=== PATIENT | female | born 1980 | race Caucasian/White ===

== ENCOUNTER 2020-02-18 13:10 | Emergency (ER) | payer SELFPAY ==
[2020-02-18 13:11] VITALS: BP 129/79; PULSE 83; RESP 15; TEMP 36.6; O2SAT 98; BMI 24.6
--- NOTE | 2020-02-18 13:34 | ED.VISSUMM ---
- ER Visit Summary Date of Service: 02/18/20 Chief Complaint: [Wants to be checked for STDs] History of Present Illness: The patient is a 39 F [presents to the emergency department with concern about possible STD although she has no symptoms. Patient states that she had a ex-boyfriend now who she was with for 3 years that she believes had cheated on her multiple times with multiple partners. Patient's boyfriend has not claim to have any sexually transmitted diseases. Patient has not had any abnormal lesions. She denies any vaginal discharge. She is not had any recent illness. She has no medical history. She does not get yearly Pap exams as she states she has not had a primary care physician in years.] Physical Examination: [HEENT-PERRLA, EOMI. Cranial nerves II through XII grossly intact. TMs clear. Mucous membranes moist. No adenopathy. Cardiovascular-regular rate and rhythm without murmur or ectopy Lungs-clear to auscultation, chest wall stable without crepitus or subcu emphysema Abdomen-normoactive bowel sounds, soft, nontender, no rebound or rigidity, no peritoneal signs. exam-patient deferred exam as she has no lesions or concerning symptoms. Extremities-intact ?4, normal range of motion, normal pulses, atraumatic] Test Results: [Patient had a GC chlamydia screen sent via urine.] Emergency Department Course and Treatment: [I discussed with patient empirically treating for GC and chlamydia however since she has no symptoms she would prefer to wait for results.] Treatment Plan: [Patient will be referred to [facility] for follow-up. Patient advised that she needs yearly Pap exams.] Disposition: [Discharged home in stable condition] Impression: [Concern for STD] This note was generated with [employer] dictation software. It may contain incorrect words, spelling, and punctuation that were not noted in review of the chart prior to signing ED Disposition - Plan for ED Patient: Referrals: Care Physician,No Primary [Primary Care Provider] -
--- NOTE | 2020-02-18 13:37 | ED.DEP ---
ED Disposition - Plan for ED Patient: Instructions: If You Think You Have an STD, Older Adults and STDs Referrals: Care Physician,No Primary [Primary Care Provider] - Manisha Chavarria MD [STAFF PHYSICIAN] - 3-5 Days
[2020-02-18 15:50] LABS: Chlamydia Trachomatis by PCR Negative (Negative)
[2020-02-18 15:51] LABS: Neisserai gonorrhoeae by PCR Positive (Negative); Probe Check PASS
[2020-02-18 22:01] VITALS: BP 129/79; PULSE 83; RESP 15; TEMP 37.2; O2SAT 98; BMI 24.6
[2020-02-18] MEDS: Ceftriaxone 500 MG Vial 250 MG IM (22:01)
--- NOTE | 2020-02-18 22:13 | ED.RN ---
pt came back and recieved her Rocephin shot and discharged without any incident.
== END 2020-02-18 22:19 | disposition home or self-care (01) ==
LOC: ED 14:08
PROVIDERS: Emergency Provider Emergency Medicine
DX: Z11.3 Encounter for screening for infections with a predominantly sexual mode of transmission (principal)
CPT/HCPCS: 87491; 87591; 96372; 99283

== ENCOUNTER 2021-11-10 10:44 | Day surgery (SDC) | payer BC, MEDICAID, SELFPAY ==
[2021-11-09 11:15] LABS: Hemoglobin 13.4 g/dL (12.0-15.0); Mean Corp Hgb Conc 32.7 g/dL (32-36); Mean Corpuscular Hgb 29.9 pg (27.0-32.0); Mean Corpuscular Volume 91.5 fL (81-99); Mean Platelet Vol. 10.7 fl (6.2-12.0); Platelet Count 305 K/mm3 (150-450); RBC Distribution Width CV 12.7 % (11.6-14.6); RBC Distribution Width SD 42.5 fl (35.1-43.9); Red Blood Count 4.48 M/mm3 (4.2-5.4); White Blood Count 7.6 K/mm3 (4.4-11.0)
--- NOTE | 2021-11-09 14:40 | PCM.HP.BLA ---
History and Physical Date of Admission: 11/10/21 HPI: The patient is a 41 year old female presenting for pre-operative visit. She is scheduled for Hysteroscopy D&C, polyp resection for AUB, thickened endometrium, suspected poly on 11/03/21. Procedure discussed along with risks, benefits and complications. Other alternatives discussed for management. Consent form signed? Yes. ? ? PAST MEDICAL HISTORY PAST MEDICAL HISTORY Diagnosis Date ? PMH - PAST MEDICAL HISTORY OF ? ? Blood transfusions x 2, following childbirth and tooth extraction ? Unspecified hemorrhagic conditions ? ? Bleeding tendency ? Von Willebrand's disease (HCC) ? ? ? PAST SURGICAL HISTORY PAST SURGICAL HISTORY Procedure Laterality Date ? PAST SURGICAL HISTORY OF ? ? ? dental extraction x 3 teeth ? ? ? CURRENT MEDICATIONS Current Outpatient Medications Medication Sig Dispense Refill ? norethindrone (AYGESTIN) 5 mg tablet Take 1 tablet by mouth once daily. 60 tablet 0 ? No current facility-administered medications for this visit. ? ? ALLERGIES: Patient has no known allergies. ? PERSONAL HISTORY: SOCIAL HISTORY Social History ? Tobacco Use ? Smoking status: Never Smoker ? Smokeless tobacco: Never Used Vaping Use ? Vaping Use: Never used Substance Use Topics ? Alcohol use: No ? Drug use: No ? FAMILY HISTORY: FAMILY HISTORY FAMILY HISTORY Problem Relation Age of Onset ? Hypertension Mother ? ? Breast Cancer Maternal Grandmother ? ? ? REVIEW OF SYMPTOMS: GENERAL: denies fevers or chills ENDOCRINOLOGY: has not been on steroids Cardiology : denies palpitations or chest pain Respiratory: denies SOB or cough Hematology: denies history of prolonged bleeding or easy bruising or VTE Allergy: Denies history of personal or family history of allergy to anesthesia ? PHYSICAL EXAMINATION: ? VITALS: Last menstrual period 07/23/2021. ? GENERAL: The patient is well nourished, well hydrated in no acute distress. , The patient is oriented to time, place, and person. NECK: Supple. No lynphadenopathy, normal thyroid, no thyromegaly. LUNGS: Clear to auscultation bilaterally. no wheezes, rhonchi or rales HEART: Regular rate and rhythm, Normal heart sounds and No murmurs or gallops ? IMPRESSION: h/o low von willebrand antigen and factor VIII but no definitive von Willebrand dx. AUB, endoemtrial thickening on US, suspect polyp ? PLAN: The risks/benefits/alternatives and personal involved for the planned hysteroscopy D&C with possible polyp resection were reviewed with the patient. Her questions were answered to her satisfaction and she desires to proceed. Consent was signed. I reviewed with her postop instructions and expectations. ? I have reviewed and updated past medical and surgical history, medications and allergies Assessment & Plan Assessment/Plan (1) Abnormal uterine bleeding (AUB): (2) Endometrial thickening on ultrasound:
[2021-11-10] VITALS (11 sets, daily range): BP systolic 105–120; BP diastolic 60–82; PULSE 66–83; RESP 15–18; TEMP 36.2–37.6; O2SAT 98–100; BMI 26.9
--- NOTE | 2021-11-10 | EMB_PTH ---
PATIENT: ANNABEL MADRIGAL LOC: [facility] [place] U#:[id number] AGE/SX: 41/F ROOM: RE11/10/[address]: Dr. Manisha Chavarria MD : 1980 BED: DIS: 11/10/2021 SPEC #: [id number] RECD: 11/10/21 13:38 STATUS: ROSANA REAdwoa #: [id number] DLIMA: 11/10/21 00:[address]: Manisha Chavarria DEPT: SURGICAL PATHOLOGY RECD BY: Vinicius La ENTERED: 11/11/21 10:48 SP TYPE: ENDOM BX/C CHARLI DR: No Primary Care Phys Tissues: Endometrium, NOS Procedures: Surgery Specimen Level IV HEADER OPERATION: Hysteroscopy, D & C PRE-OP DIAGNOSIS: Abnormal uterine bleeding; endometrial thickening TISSUE SUBMITTED: Endometrial curettings MICROSCOPIC DIAGNOSIS Endometrium, curettings: Weakly proliferative endometrium. Detached fragments of squamous epithelium with mild, moderate and severe squamous dysplasia, JESSICA I-III (HSIL). See comment AM:yancy 11/14/2021 COMMENT Results from immunohistochemistry ([id number]) for surrogate HPV marker (p16) will be reported separately. Case has been reviewed in consultation with Dr. Gregg who concurs with the above diagnosis. IDC:SJ MICROSCOPIC DESCRIPTION Slides are reviewed. GROSS DESCRIPTION Received in fixative is one container labeled with the patient's name and designated endometrial curettings. The specimen consists of light dos santos mucoid material aggregating to 2 x 2 x <0.1 cm. The specimen is totally submitted in one cassette. / AM:yancy 11/11/2021 TC:1 CPT: 71925
--- NOTE | 2021-11-10 | IMM_PTH ---
PATIENT: ANNABEL MADRIGAL LOC: [facility] [place] U#:[id number] AGE/SX: 41/F ROOM: RE11/10/[address]: Dr. Manisha Chavarria MD : 1980 BED: DIS: 11/10/2021 SPEC #: [id number] RECD: 11/14/21 11:55 STATUS: ROSANA REQ #: [id number] DILMA: 11/10/21 00:[address]: Manisha Chavarria DEPT: IMMUNOHISTOCHEMISTRY RECD BY: Radha Ann ENTERED: 11/14/21 11:56 SP TYPE: IMMUNO OTHR DR: No Primary Care Phys Tissues: Endometrium, NOS Procedures: p16 (initial) KI-67 (add) PHYSICIAN & INSTITUTION [place] [id number] SPECIMEN INFORMATION: Tissue Source: Endometrial curettings Clinical Info: Abnormal uterine bleeding, endometrial thickening Specimen Number: [id number] CPT code: 61107, 99110 METHODOLOGY: Deparaffinized sections of prefer/formalin-fixed tissue or PAP/DQ stained slides are incubated with monoclonal/polyclonal antibodies/oligonucleotide probes. Localization is made via biotin free immunoperoxidase method. Appropriate controls are performed and reacted as expected. Results on target cell population are indicated in the following table: RESULTS: ANTIBODY / CLONE RESULT P16 (E6H4) positive, block-like Ki-67 (30-9) positive, >90% These tests were developed and their performance characteristics determined by [facility]. They may not have been cleared or approved by the U.S. Food and Drug Administration. The FDA has determined that such clearance or approval is not necessary. The above immunohistochemical/dualISH markers are ordered and reviewed by the Pathologist. INTERPRETATION: Endometrium, curettings: Squamous mucosa with mild, moderate and severe squamous dysplasia, JESSICA?III (HSIL). AM:yancy 11/15/2021
[2021-11-10 11:18] LABS: Internal QC Validated? YES +Cl - CLEAR BKGD; Pregnancy, Urine Negative Negative
[2021-11-10] MEDS: Acetaminophen 500 MG Tablet 1000 MG PO (11:23)
[2021-11-10] MEDS: Ketorolac 30 MG/ML Syringe IV (11:26)
[2021-11-10] MEDS: Lactated Ringers 1,000 ML 15 ML IV (11:28)
[2021-11-10] MEDS: 0.9% Normal Saline 1,000 ML 15 ML IV (11:29)
[2021-11-10] MEDS: Lidocaine 1% /Epi 1:100 (20ml) 20 ML Vial (12:55)
--- NOTE | 2021-11-10 13:06 | OP.PCM_ITS ---
Problems Associated Problem List Diagnoses (1) Endometrial thickening on ultrasound: (2) Abnormal uterine bleeding (AUB): Report of Operation Date of Procedure: 11/10/21 Pre-Operative Diagnosis: AUB, thickened endometrium Post-Operative Diagnosis: same Surgery/Procedure Performed:: Hysteroscopy D&C Description of Surgical Findings:: normal cervix and vagina, normal endometrium wihtout discrete polyps, both tubal ostia identified Surgeon: Manisha Chavarria dock supervisor: None Type of Anesthesia: MAC/Supplemental/Local Anesthesiologist: Kaushal Childs Special Medications: none Specimen's removed: endometrial curettings Drains: none Estimated Blood Loss (mL): 10 Fluids Replaced: 400 + one pack of platelets Description of Procedure: The patient was taken to the OR where she was prepped and draped in dorsal lithotomy position. The weighted speculum was placed in the vagina and the anterior lip of the cervix was grasped with a single-tooth tenaculum. A paracervical block was administered with 1% Xylocaine with dilute epinephrine solution. The cervix was dilated serially with Hegar dilators. The 7,mm hysteroscope was placed into the uterine cavity and the above findings were noted. Bilateral tubal ostia were identified. The hysteroscope was removed. A gentle sharp curettage was done of the uterine cavity. The instruments were removed from the vagina. The specimen was handed off and sent to pathology. All sponge and needle counts were correct. Vaginal sweep was performed by me. The patient was awakened and taken to the recovery room in stable condition. Calculated hysteroscopic fluid deficit 20 cc normal saline Findings: Endometrial cavity: Normal, no fibroids or polyps noted Cervix: Normal Vagina: Normal Grafts/Implants Used: none Procedure Start Time: 12:55 Procedure Stop Time: 13:03 Complications none Admit VTE Documentation VTE Present on Admission: No VTE Mechan Device Prophylaxis: SCD's VTE Pharm Prophylaxis ordered?: No Reason prophylaxis not ordered:: Procedure Not Indicated
--- NOTE | 2021-11-10 13:08 | PCM.DC ---
Discharge Instructions Diet Discharge Diet: No restrictions Activity Discharge Activity: [address] Drive (11/12/2019) Return to work on:: 11/11/21 May shower in (days): 1 May resume sexual activity in: 1-2 weeks and 2 weeks Lifting Restrictions: none Dressing / Incision Call your doctor if your incision/area has: Sudden Increased Bleeding and Foul Smelling Discharge Call your doctor if you observe: Fever of 101 or Higher and Using more than 1 pad per hour (for 2 hrs in a row) Follow Up Care Please Follow Up With: Manisha Chavarria MD When: 2-4 weeks or as needed. Call [phone] to make an appointment or with any concerns. Test Results: Test results from this visit will be discussed in further detail at your follow-up appointment, if applicable. Discharge Plan Admission Primary Reason for Your Visit: D&C Attending Provider: Manisha Chavarria Primary Care Provider: Gema Physician,Jeana Primary Discharge Orders/Prescriptions Prescriptions: No Action norethindrone acetate 5 mg Tablet 5 mg PO DAILY RF: 0 Other Ambulatory Orders: Platelets Apheresis PPHR LR SD (Routine) Timeframe: [id number] Location: None Selected Ordered By: Dr. Manisha Chavarria Referrals / Follow Up: Care Physician,No Primary [Primary Care Provider] - Disposition Disposition (needs filled in before D/C Order can be placed): Home, Self Care
--- NOTE | 2021-11-10 13:23 | SUR.PHASEI ---
PT SECOND BAG OF PLATELETS WERE COMPLETED IN OR PRIOR TO ARRIVING IN PACU.
== END 2021-11-10 15:07 | disposition home or self-care (01) ==
LOC: SDC 10:46 → AC 10:46
PROVIDERS: Referring Provider Obstetrics & Gynecology; Visit Provider Obstetrics & Gynecology
PROC: 0UB98ZZ Excision of Uterus, Via Natural or Artificial Opening Endoscopic (ICD-10-PCS; CPT 58558; principal; 2021-11-10 12:15)
DX: N93.9 Abnormal uterine and vaginal bleeding, unspecified (principal); D68.0 Von Willebrand disease; R93.89 Abnormal findings on diagnostic imaging of other specified body structures; R23.3 Spontaneous ecchymoses; Z20.822 Contact with and (suspected) exposure to COVID-19
CPT/HCPCS: 58558; 00952; 36415; 36430; 81025; 85027; 86850; 86900; 86901; 86965; 87811; 88305; 88341; 88342; J7030; J7120; P9035; J2405; J3490

== ENCOUNTER 2023-07-24 19:28 | Emergency (ER) | payer OTHER, SELFPAY ==
[2023-07-24] VITALS (22 sets, daily range): BP systolic 124–141; BP diastolic 84–96; PULSE 72–83; RESP 0–18; TEMP 36.1; O2SAT 95–100; BMI 27.3
--- NOTE | 2023-07-24 19:57 | EKG12_ITS ---
Test Reason : HEADACHE Blood Pressure : / mmHG Vent. Rate : 083 BPM Atrial Rate : 083 BPM P-R Int : 194 ms QRS Dur : 092 ms QT Int : 390 ms P-R-T Axes : 025 011 015 degrees QTc Int : 458 ms Normal sinus rhythm Normal ECG Confirmed by ARELIS GIBSON, ROSANA ([id number]), proposal editor DANIEL MALDONADO ([id number]) on 07/27/2023 7:56:21 AM Referred By: Confirmed By:ROSANA INFANTE MD
--- NOTE | 2023-07-24 19:57 | CT_ITS ---
EXAM: CT HEAD WITHOUT INTRAVENOUS CONTRAST CLINICAL INDICATION: headache TECHNIQUE: Multiple axial images were obtained of the head without intravenous contrast. This CT exam was performed using one or more of the following dose reduction techniques: automated exposure control, adjustment of the mA and/or kV according to patient size, and/or use of iterative reconstruction technique. COMPARISON: No relevant prior studies available. FINDINGS: BRAIN AND EXTRA-AXIAL SPACES: No significant abnormality. No intra- or extra-axial hemorrhage. No evidence of acute infarct. No intracranial mass or mass effect. There is preservation of the san/white matter interface. Ventricles are appropriate for age. Basal cisterns are patent. BONES/JOINTS: No significant abnormality. No discrete lytic or blastic abnormalities. SINUSES: Mucous retention cyst in the right maxillary sinus. MASTOID AIR CELLS: No significant effusion. ORBITS: No acute findings. CT/Brain/Head without Contrast IMPRESSION: No acute findings in the head/brain. Electronically Signed: Pedro Perez DO at 20:25 EST ,
[2023-07-24] MEDS: 0.9% Normal Saline (1000mL) 1,000 ML 1000 ML IV (20:05)
[2023-07-24] MEDS: Ketorolac 15 MG/ML Vial IV (20:05)
[2023-07-24] MEDS: proCHLORPERazine 10 MG/2 ML Vial IV (20:05)
--- NOTE | 2023-07-24 20:15 | RAD_ITS ---
EXAM: XR CHEST, 1 VIEW CLINICAL INDICATION: chest pain TECHNIQUE: Frontal view of the chest. COMPARISON: No relevant prior studies available. FINDINGS: LUNGS AND PLEURAL SPACES: No significant abnormality. No consolidation or edema. No pneumothorax. No effusion. HEART: No significant abnormality. Cardiac silhouette not enlarged. MEDIASTINUM: Central airways and mediastinal contour are unremarkable. BONES/JOINTS: No significant abnormality. No acute fracture. SOFT TISSUES: No significant abnormality. RAD/Chest 1 View (Portable) IMPRESSION: No radiographic evidence of acute cardiopulmonary disease. Electronically Signed: Pedro Perez DO at 20:30 EST ,
--- NOTE | 2023-07-24 20:20 | EX.ED.VIS.HA ---
HPI History of Present Illness Chief Complaint: Headache Narrative Narrative: 43-year-old female who denies significant past medical history presents with multiple complaints ranging from back pain over the last few weeks, to chest pain for the last week, and headache that began today. She does not have a history of migraines. She states that her headache is associated with nausea but no vomiting. It is mainly left-sided. She endorses photophobia but no phonophobia. She has not taken anything for analgesia because she does not have anything at home. However, she was able to drive herself to the emergency department. She complains of chest pain more on the left side of her chest without exacerbating or alleviating factors. She said back pain as well for a bit longer. She presents because of multiple somatic complaints, but mainly the headache which started today. There are also no exacerbating or alleviating factors to this as well. [facility] Medical History Back pain Blackout Easy bruising Headache Heartburn History of pain when walking History of stress test Leg cramps Low iron Non-smoker Wears dentures Wears hearing aid Home Medications NK 07/24/23 [History Last Taken Unknown] Allergy/AdvReac Type Severity Reaction Status Date / Time No Known Allergies Allergy Verified 07/24/23 19:34 Surgical History Hx of appendectomy Hx of tooth extraction Social History Smoking Status: Never smoker ROS ROS ED ROS Narrative Constitutional: No fever, no chills. HEENT: No sore throat. No neck pain. No loss of vision. No rhinorrhea. Cardiovascular: +1-week duration of left-sided chest pain. No palpitations. No pedal edema. Respiratory: No cough, no shortness of breath. Abdominal: No abdominal pain. Positive nausea. No vomiting. Genitourinary: No dysuria. No hematuria. Musculoskeletal: No myalgias. No arthralgias. Positive back pain. Neurologic: Positive sided headaches. No dizziness. No lightheadedness. Skin: No rash. No change in color. Psychiatric: No depression. No anxiety. EXAM Physical Exam Narrative Exam Narrative: Afebrile. Vital signs noted. HEENT: Normocephalic. Atraumatic. PERRL, EOMI. Neck soft and supple. No point tenderness or step off. Cardiovascular: Regular rate and rhythm. No murmurs, rubs, or gallops appreciated. Respiratory: No tachypnea. Lungs clear to auscultation bilaterally. Gastrointestinal: Abdomen soft, nontender, with normoactive bowel sounds. No rebound or guarding. Neurological: Awake. Alert. Nonfocal, nonlateralizing. DTRs equal and symmetric. Skin: No rash. Normal color. No pallor. Musculoskeletal: No pedal edema. Full range of motion extremities. Const Vital Signs: 07/24/23 19:30 07/24/23 19:53 07/24/23 19:54 Temperature 97.0 F L Temperature Source Temporal Pulse Rate 83 82 Respiratory Rate 15 16 Respiratory Pattern Normal Blood Pressure 141/93 H 137/96 H Blood Pressure Mean 109 109 Pulse Ox 100 99 Oxygen Delivery Method Room Air Room Air 07/24/23 19:57 07/24/23 21:27 Temperature Temperature Source Pulse Rate 73 Respiratory Rate 16 Respiratory Pattern Blood Pressure 129/92 H Blood Pressure Mean 104 Pulse Ox 97 Oxygen Delivery Method Room Air Room Air MDM MDM MDM Narrative Medical decision making narrative: Regarding her headache, and the differential is migraine versus tension headache. Sounds more like classical migraine but she does not have a history of this. Hence, I do feel imaging of the brain is indicated. CT will be obtained to help rule out hemorrhage or mass. Regarding her chest pain, in the differential diagnosis is ACS versus musculoskeletal chest wall pain. EKG was obtained and interpreted by myself as normal sinus rhythm at 83 bpm without ectopy or acute ST changes. No STEMI. I will obtain a chest x-ray to help rule out pneumonia or pneumothorax but the history and physical is not supportive of these diagnoses. I reviewed her laboratory work, she has normal white count of 10.6, hemoglobin 13.2, hematocrit 40.3, platelet count normal at 268. D-dimer is negative at less than 0.27. I have low suspicion for pulmonary embolism. I do not think she is having an aortic dissection either. She does not have tearing sensation in her back and her blood pressure is appropriate. She has equal pulses radially. Review of her electrolyte panel shows potassium slightly low at 3.4 which I think is nonspecific, glucose appropriately elevated at 99 with anion gap low at 4. Troponin is 3. Once again she has been having chest pain for over a week so I do not feel serial troponins are warranted. Her serum is negative. I reviewed the radiology report of the CT of the brain which shows no acute hemorrhage, no mass. Chest x-ray in 1 view interpreted by myself independently shows no evidence of pneumonia or pneumothorax. No widened mediastinum. I reviewed the radiology report which confirms my independent interpretation. After ketorolac, and prochlorperazine, she was easily awakened and upon repeat examination at approximately 2210, her headache is almost resolved. Had been rated as a 9 out of 10. I feel she can be discharged safely home to follow-up with a primary care provider. Return instructions to the emergency department were reviewed. Disposition is discharged home in improved and stable condition. History & Record Review Discussion w/independent historian: Patient Additional record(s) reviewed:: Prior ED visit Lab Data Attestation: I reviewed the patient's lab results. Labs: Laboratory Results - last 24 hr 07/24/23 19:58 WBC 10.6 RBC 4.45 Hgb 13.2 Hct 40.3 MCV 90.6 MCH 29.7 MCHC 32.8 RDW Std Deviation 43.6 RDW Coeff of Isha 13.2 Plt Count 268 MPV 10.7 Immature Gran % (Auto) 0.300 Neut % (Auto) 71.2 H Lymph % (Auto) 19.6 [place] % (Auto) 6.8 Eos % (Auto) 1.8 Baso % (Auto) 0.3 Absolute Neuts (auto) 7.6 Absolute Lymphs (auto) 2.08 Nucleated RBC % 0 D-Dimer Quant (PE/DVT) < 0.27 L Sodium 138 Potassium 3.4 L Chloride 107 Carbon Dioxide 27.0 Anion Gap 4 L BUN 7 Creatinine 0.65 Estim Creat Clear Calc 102.46 Est GFR (MDRD) Af Amer 127 Est GFR (MDRD) Non-Af 105 BUN/Creatinine Ratio 10.8 Glucose 99 Calcium 8.9 Total Bilirubin 0.40 AST 21 ALT 15 Alkaline Phosphatase 60 Troponin I High Sens 3 Total Protein 7.0 Albumin 3.5 Globulin 3.5 Albumin/Globulin Ratio 1.0 Serum , Qual NEGATIVE Radiography Diagnostic Testing: Clinical Impression(s) from Imaging Studies Brain CT 07/24/23 19:57 IMPRESSION: No acute findings in the head/brain. Electronically Signed: Pedro Perez DO at 20:25 EST , Chest X-Ray 07/24/23 20:15 IMPRESSION: No radiographic evidence of acute cardiopulmonary disease. Electronically Signed: Pedro Perez DO at 20:30 EST , Discharge Plan Triage Chief Complaint: Headache ED Provider: Ludwin Latham Dx/Rx/DC Orders Clinical Impression: Back pain, Headache, Chest pain Instructions: ED Back Pain (Acute or Chronic), ED Chest Pain, Uncertain Cause, ED Headache Unspecified, ED, Migraine (Classical) Prescriptions: No Action NK Primary Care Provider: Care Physician,No Primary Referrals: Rachell Candelaria MD [Med Staff - Residential Property Consultant] - As soon as possible Care Physician,No Primary [Primary Care Provider] - Activity Restrictions/Additional Instructions: Follow-up with primary care provider as soon as possible. Return with new or worsening symptoms. Disposition Disposition: Home, Self Care Capacity Legal Switchboard Mechanic Reflex Medical hold order details:: IF a medical hold is selected below, a suggested order for a MEDICAL HOLD will reflex upon signing the document. Next of kin: [place] law dictates a PRIORITY LIST for identifying legal decision-maker/legal next of kin in the following order (LNOK): 1st: The patient?s legal guardian, if any 2nd: The patient's spouse (if status is questionable, consult Risk Management) 3rd: The patient?s adult child(katalina) (majority, if multiple children) 4th: The patient?s parents 5th: The patient?s adult siblings (majority, if multiple children siblings)
--- OUTSIDE RECORDS SUMMARY | 2023-07-24 20:27 | XMS RPT_ITS | CCD ---
Author Name Unknown Address [address] [place] [address] Organization [facility] Care Team Providers Care Manager Of Training And Development Name Role Phone Unavailable Primary Care Provider UnavailALPESH Sandoval Attending Unavailable ALPESH CASAS Referring Unavailable ALPESH CASAS Attending Unavailable ALPESH CASAS Referring Unavailable ALPESH CASAS Attending Unavailable DYLAN SOUZA Referring Unavailable ALPESH CASAS Attending Unavailable ALPESH CASAS Referring Unavailable ALPESH CASAS Attending Unavailable Medications Current Medications Medication Drug Class(es) Dates Sig (Normalized) Sig (Original) amoxicillin 500 mg oral capsule (1 source) Penicillin-class Antibacterial Start: 10-02-2022 End: 10-12-2022 take 1 capsule by mouth twice daily amoxicillin (AMOXIL) 500 mg capsule Indications: Strep throat Take 1 capsule by mouth twice daily for 10 days. 20 capsule 0 10/02/2022 10/12/2022 Active Completed/Discontinued Medications Medication Drug Class(es) Dates Sig (Normalized) Sig (Original) norethindrone acetate 5 mg oral tablet (12 sources) Start: 10-03-2021 End: 06-19-2022 take 1 tablet by mouth once daily norethindrone (AYGESTIN) 5 mg tablet Take 1 tablet by mouth once daily. 60 tablet 0 10/03/2021 06/19/2022 Discontinued (Other) Problems Active Problems Problem Classification Problem Date Documented Date Episodic/Chronic Coagulation and hemorrhagic disorders (20 sources) Blood coagulation disorder; Translations: [Coagulation defect, unspecified] Onset: 03-12-2007 03-12-2007 Chronic Immunizations and screening for infectious disease (2 sources) Requires vaccination; Translations: [Encounter for immunization] Onset: 08-22-2022 Episodic Other aftercare (1 source) Surgical follow-up; Translations: [Encounter for follow-up examination after completed treatment for conditions other than malignant neoplasm] Episodic Other female genital disorders (3 sources) Abnormal uterine bleeding; Translations: [Abnormal uterine and vaginal bleeding, unspecified] Chronic Other female genital disorders (1 source) Cervical intraepithelial neoplasia grade 2; Translations: [Moderate cervical dysplasia] Episodic Other screening for suspected conditions (not mental disorders or infectious disease) (2 sources) Endometrium thickened; Translations: [Abnormal findings on diagnostic imaging of other specified body structures] Chronic Other upper respiratory infections (2 sources) Sore throat symptom; Translations: [Acute pharyngitis, unspecified] Episodic Past or Other Problems Problem Classification Problem Date Documented Date Episodic/Chronic Cancer of cervix (7 sources) Abnormal histological finding in specimen from female genital organ; Translations: [Carcinoma in situ of cervix, unspecified] Onset: 11-29-2021 Episodic Disorders of teeth and jaw (14 sources) Temporomandibular joint disorder; Translations: [Unspecified temporomandibular joint disorder, unspecified side] Onset: 08-12-2007 08-12-2007 Episodic Other screening for suspected conditions (not mental disorders or infectious disease) (1 source) Other abnormal and inconclusive findings on diagnostic imaging of breast; Translations: [Abnormal mammogram] Onset: 10-12-2021 Episodic Results Test Name Value Interpretation Reference Range Facil it Vital Signs Date Time Vital Sign Value Performing Clinician Dallin gonzalez 10-02-2022 16:07-0400 Body temperature 99.3 [degF] Karen Good APRN.CNP Work Phone: [facility] 10-02-2022 16:07-0400 Body weight 74.39 kg Karen Good APRN.CNP Work Phone: [facility] 10-02-2022 16:07-0400 Diastolic blood pressure 76 mm[Hg] Karen Good APRN.CNP Work Phone: [facility] 10-02-2022 16:07-0400 Heart rate 102 /min Karen Good APRN.CNP Work Phone: [facility] 10-02-2022 16:07-0400 Respiratory rate 18 /min Karen Good APRN.INCIDENT RESPONSE COORDINATOR Work Phone: [facility] 10-02-2022 16:07-0400 SaO2% (BldA) [Mass fraction] 97 % Karen Good DATA SYSTEMS MANAGER.INCIDENT RESPONSE COORDINATOR Work Phone: [facility] 10-02-2022 16:07-0400 Systolic blood pressure 122 mm[Hg] Karen Good DATA SYSTEMS MANAGER.INCIDENT RESPONSE COORDINATOR Work Phone: [facility] 06-19-2022 09:36-0500 Body weight 70.31 kg Alpesh Casas MD Work Phone: [facility] 06-19-2022 09:36-0500 Diastolic blood pressure 78 mm[Hg] Alpesh Casas MD Work Phone: [facility] 06-19-2022 09:36-0500 Systolic blood pressure 122 mm[Hg] Alpesh Casas MD Work Phone: [facility] 01-16-2022 11:08-0400 Body weight 70.85 kg Alpesh Casas MD Work Phone: [facility] 01-16-2022 11:08-0400 Diastolic blood pressure 60 mm[Hg] Alpesh Casas MD Work Phone: [facility] 01-16-2022 11:08-0400 Systolic blood pressure 100 mm[Hg] Alpesh Casas MD Work Phone: [facility] 11-29-2021 11:08-0400 Body weight 67.77 kg Alpesh Casas MD Work Phone: [facility] 11-29-2021 11:08-0400 Diastolic blood pressure 68 mm[Hg] Alpesh Casas MD Work Phone: [facility] 11-29-2021 11:08-0400 Systolic blood pressure 100 mm[Hg] Alpesh Casas MD Work Phone: [facility] 10-28-2021 10:55-0400 Body height 159.4 cm Alpesh Casas MD Work Phone: [facility] 10-28-2021 10:55-0400 Body weight 68.49 kg Alpesh Casas MD Work Phone: [facility] 10-28-2021 10:55-0400 Diastolic blood pressure 74 mm[Hg] Alpesh Casas MD Work Phone: [facility] 10-28-2021 10:55-0400 Heart rate 88 /min Alpesh Casas MD Work Phone: [facility] 10-28-2021 10:55-0400 Respiratory rate 18 /min Alpesh Casas MD Work Phone: [facility] 10-28-2021 10:55-0400 Systolic blood pressure 120 mm[Hg] Alpesh Casas MD Work Phone: [facility] Encounters Encounter Date Encounter Type Care Provider Facility Start: 10-02-2022 End: 10-02-2022 ambulatory ALPESH CASAS Facility:[facility] [place] Start: 10-02-2022 End: 10-02-2022 Patient encounter procedure Karen Good APRN.CNP Work Phone: [facility] Procedures Date Procedure Procedure Detail Performing Clinician Start: 10-02-2022 STREP A MOLECULAR (POC) Karen Good APRN.CNP Work Phone: Start: 09-08-2021 Mammography Alpesh pascual MD Work Phone: Plan of Treatment Date Care Activity Detail Author Start: 06-19-2027 HPV TESTING HPV TESTING [facility] Start: 02-23-2025 HPV TESTING HPV TESTING [facility] Start: 02-23-2025 PAP TESTING PAP TESTING [facility] Start: 12-16-2022 9vhpv vacc 2/3 dose sched im use HUMAN PAPILLOMAVIRUS 9-VALENT HPV IM Immunization/Injection Routine High grade squamous intraepithelial lesion (HGSIL), grade 3 JESSICA, on biopsy of cervix Dysplasia of cervix, high grade JESSICA 2 Need for prophylactic vaccination/inoculation against viral disease Expected: 12/16/2022 (Approximate) [facility] Work Phone: Immunizations Immunization Date Immunization Notes Care Provider Marie mai 08-22-2022 Human Papillomavirus 9-valent vaccine Karen Good APRN.INCIDENT RESPONSE COORDINATOR Work Phone: [facility] 06-19-2022 Human Papillomavirus 9-valent vaccine Alpesh Casas MD Work Phone: [facility] 12-08-2003 diphtheria and tetan us toxoids, adsorbed for pediatric use Alpesh Casas MD Work Phone: [facility] Work Phone: Payers Date Payer Category Payer Unknown [id number] 2022 Unknown [employer] PPO [id number] 2022-Present [phone] [address] [place] [address] PPO [id number] 2021 Unknown [employer] PPO [id number] 2021-Present [phone] [address] [place] [id number] PPO [id number] 2021 Unknown [id number] 2021 Private Health Insurance [id number] 2021 Unknown [id number] 2020 Medicaid [employer] [id number] 2020-Present [phone] [address] [place] [address] Medicaid [id number] 2020 Medicaid [id number] Social History Date Type Detail Facility Start: 06-19-2022 Tobacco smoking stat us NCIS Never smoked tobacco [facility] Start: 10-28-2021 End: 06-19-2022 Alcohol intake Current non-drinker of alcohol (finding) [facility] Start: 09-05-2021 Education 14 [facility] Start: 1980 Sex Assigned At Not on file [facility] Start: 10-18-2021 End: 11-29-2021 Exposure to SARS-CoV-2 (event) Not sure [facility] Start: 06-19-2022 Tobacco use and exposure Smoke less tobacco non-user [facility] Clinical Notes 09-09-2021 to 10-02-2022 Karen Good APRN.INCIDENT RESPONSE COORDINATOR - 10/02/2022 4:20 PM EDTPatient InstructionsTabathjanet Cisneros Ma - 06/19/2022 9:50 AM ESTRebben Casas MD - 06/19/2022 9:32 AM ESTPatient InstructionsPatient Instructions Note Date & Type Note Facility 10-02-2022 Note HNO ID: [id number] Author: Karen Good APRN.INCIDENT RESPONSE COORDINATOR Service: ? Author Type: Nurse Practitioner Type: Progress Notes Filed: 10/02/2022 4:49 PM Note Text: Subjective Sore Throat Pertinent negatives include no abdominal pain, congestion, coughing, diarrhea, ear pain or vomiting. Isatu Sage is a 42 year old female who presents with a sore throat and body aches since last night. She has not had a fever. She has not had any sick contacts. She took Dayquil at home for symptoms. Review of Systems Constitutional: Negative for chills and fever. HENT: Positive for sore throat. Negative for congestion and ear pain. Respiratory: Negative for cough. Cardiovascular: Negative. Gastrointestinal: Negative for abdominal pain, diarrhea, nausea and vomiting. Musculoskeletal: Positive for myalgias. BP 122/76 Pulse 102 Temp 37.4 ?C (99.3 ?F) Resp 18 Wt 74.4 kg (164 lb) LMP 06/07/2022 (Exact Date) SpO2 97% BMI 29.28 kg/m? PAST MEDICAL HISTORY Diagnosis Date High grade squamous intraepithelial lesion (HGSIL), grade 3 JESSICA, on biopsy of cervix PMH - PAST MEDICAL HISTORY OF Blood transfusions x 2, following childbirth and tooth extraction Unspecified hemorrhagic conditions Bleeding tendency Von Willebrand's disease PAST SURGICAL HISTORY Procedure Laterality Date HYSTEROSCOPY BX ENDOMETRIUMAND/POLYPC W/WO DANDC 11/10/2021 hysteroscopy DANVA for AUB, thickened endometrium HYSTEROSCOPY, DIAGNOSTIC (SEPARATE 11/10/2021 Hysteroscopy DARCIE @ [facility]-Dr. Casas PAST SURGICAL HISTORY OF dental extraction x 3 teeth ALLERGIES Patient has no known allergies. MEDICATIONS amoxicillin (AMOXIL) 500 mg capsule Take 1 capsule by mouth twice daily for 10 days. FAMILY HISTORY Problem Relation Age of Onset Hypertension Mother Breast Cancer Maternal Grandmother Social History Tobacco Use Smoking status: Never Smokeless tobacco: Never Vaping Use Vaping Use: Never used Substance Use Topics Alcohol use: No Drug use: No Objective Physical Exam Vitals and nursing note reviewed. Constitutional: General: She is not in acute distress. Appearance: Normal appearance. She is not toxic-appearing. HENT: Right Ear: Tympanic membrane, ear canal and external ear normal. Left Ear: Tympanic membrane, ear canal and external ear normal. Nose: Nose normal. Mouth/Throat: Mouth: Mucous membranes are moist. Pharynx: Uvula midline. Posterior oropharyngeal erythema present. No oropharyngeal exudate. Cardiovascular: Rate and Rhythm: Normal rate and regular rhythm. Heart sounds: Normal heart sounds. Pulmonary: Effort: Pulmonary effort is normal. No respiratory distress. Breath sounds: Normal breath sounds. No wheezing or rales. Musculoskeletal: Cervical back: Neck supple. Lymphadenopathy: Cervical: No cervical adenopathy. Skin: General: Skin is warm and dry. Findings: No erythema or rash. Neurological: Mental Status: She is alert. ASSESSMENT/PLAN: 1. Sore throat - ICD9: 462, ICD10: J02.9 (primary diagnosis) - STREP A MOLECULAR (POC) 2. Strep throat - ICD9: 034.0, ICD10: J02.0 - Alere Strep Test positive, no culture pending - antibiotic as written - Discussed supportive care treatment with fluids, rest and analgesia. - The patient may also use warm salt water gargles, throat lozenges and/or OTC throat spray as needed. - Contagious dz precautions discussed- including considered contagious until on antibiotics for 24 hours - Call back if drooling, increased temperature, symptoms of dehydration and/or still sick in one week - AMOXICILLIN 500 MG CAPSULE - Follow-up with your PCP in 3-5 days if symptoms have not improved or sooner if symptoms worsen - Discussed red flags and need for immediate medical evaluation if any occur. - Discussed supportive care treatment with fluids, rest and analgesia. - Discussed expected course of illness Karen Good APRN.INCIDENT RESPONSE COORDINATOR [facility] 10-02-2022 History of Presen t illness Narrative Subjective Sore Throat Pertinent negatives include no abdominal pain, congestion, coughing, diarrhea, ear pain or vomiting. Isatu Sage is a 42 year old female who presents with a sore throat and body aches since last night. She has not had a fever. She has not had any sick contacts. She took Dayquil at home for symptoms. Review of Systems Constitutional: Negative for chills and fever. HENT: Positive for sore throat. Negative for congestion and ear pain. Respiratory: Negative for cough. Cardiovascular: Negative. Gastrointestinal: Negative for abdominal pain, diarrhea, nausea and vomiting. Musculoskeletal: Positive for myalgias. BP 122/76 Pulse 102 Temp 37.4 C (99.3 F) Resp 18 Wt 74.4 kg (164 lb) LMP 06/07/2022 (Exact Date) SpO2 97% BMI 29.28 kg/m PAST MEDICAL HISTORY Diagnosis Date High grade squamous intraepithelial lesion (HGSIL), grade 3 JESSICA, on biopsy of cervix PMH - PAST MEDICAL HISTORY OF Blood transfusions x 2, following childbirth and tooth extraction Unspecified hemorrhagic conditions Bleeding tendency Von Willebrand's disease PAST SURGICAL HISTORY Procedure Laterality Date HYSTEROSCOPY BX ENDOMETRIUM&/POLYPC W/WO D&C 11/10/2021 hysteroscopy D&C for AUB, thickened endometrium HYSTEROSCOPY, DIAGNOSTIC (SEPARATE 11/10/2021 Hysteroscopy D&C @ [facility]-Dr. Casas PAST SURGICAL HISTORY OF dental extraction x 3 teeth ALLERGIES Patient has no known allergies. MEDICATIONS amoxicillin (AMOXIL) 500 mg capsule Take 1 capsule by mouth twice daily for 10 days. FAMILY HISTORY Problem Relation Age of Onset Hypertension Mother Breast Cancer Maternal Grandmother Social History Tobacco Use Smoking status: Never Smokeless tobacco: Never Vaping Use Vaping Use: Never used Substance Use Topics Alcohol use: No Drug use: No Objective Physical Exam Vitals and nursing note reviewed. Constitutional: General: She is not in acute distress. Appearance: Normal appearance. She is not toxic-appearing. HENT: Right Ear: Tympanic membrane, ear canal and external ear normal. Left Ear: Tympanic membrane, ear canal and external ear normal. Nose: Nose normal. Mouth/Throat: Mouth: Mucous membranes are moist. Pharynx: Uvula midline. Posterior oropharyngeal erythema present. No oropharyngeal exudate. Cardiovascular: Rate and Rhythm: Normal rate and regular rhythm. Heart sounds: Normal heart sounds. Pulmonary: Effort: Pulmonary effort is normal. No respiratory distress. Breath sounds: Normal breath sounds. No wheezing or rales. Musculoskeletal: Cervical back: Neck supple. Lymphadenopathy: Cervical: No cervical adenopathy. Skin: General: Skin is warm and dry. Findings: No erythema or rash. Neurological: Mental Status: She is alert. ASSESSMENT/PLAN: 1. Sore throat - ICD9: 462, ICD10: J02.9 (primary diagnosis) - STREP A MOLECULAR (POC) 2. Strep throat - ICD9: 034.0, ICD10: J02.0 - Alere Strep Test positive, no culture pending - antibiotic as written - Discussed supportive care treatment with fluids, rest and analgesia. - The patient may also use warm salt water gargles, throat lozenges and/or OTC throat spray as needed. - Contagious dz precautions discussed- including considered contagious until on antibiotics for 24 hours - Call back if drooling, increased temperature, symptoms of dehydration and/or still sick in one week - AMOXICILLIN 500 MG CAPSULE - Follow-up with your PCP in 3-5 days if symptoms have not improved or sooner if symptoms worsen - Discussed red flags and need for immediate medical evaluation if any occur. - Discussed supportive care treatment with fluids, rest and analgesia. - Discussed expected course of illness Karen Good APRN.ZAY documented in this encounter [facility] 10-02-2022 Instructions Karen Good APRN.ZAY - 10/02/2022 4:19 PM EDT ASSESSMENT/PLAN: 1. Sore throat - ICD9: 462, ICD10: J02.9 (primary diagnosis) - STREP A MOLECULAR (POC) 2. Strep throat - ICD9: 034.0, ICD10: J02.0 - Alere Strep Test positive, no culture pending - antibiotic as written - Discussed supportive care treatment with fluids, rest and analgesia. - The patient may also use warm salt water gargles, throat lozenges and/or OTC throat spray as needed. - Contagious dz precautions discussed- including considered contagious until on antibiotics for 24 hours - Call back if drooling, increased temperature, symptoms of dehydration and/or still sick in one week - AMOXICILLIN 500 MG CAPSULE - Follow-up with your PCP in 3-5 days if symptoms have not improved or sooner if symptoms worsen - Discussed red flags and need for immediate medical evaluation if any occur. - Discussed supportive care treatment with fluids, rest and analgesia. - Discussed expected course of illness Karen Good APRN.CNP STREP INFECTIONS: Streptococcal bacteria can cause a sore throat, ear and sinus infections, and skin diseases. Strep throat is diagnosed by a special throat swab or culture test. These infections require either an antibiotic shot or an oral antibiotic medicine to get rid of all the bacteria and prevent rheumatic fever, a dangerous complication. The symptoms of Strep infection, however, usually get better after just 2-3 days of drug treatment. These infections are very contagious; any close contacts who have a fever, sore throat, or illness symptoms should see their doctor right away. Strep is no longer contagious after 24 hours of antibiotic treatment so you may return to school or work if your fever and pain are better in one day. Strep infections can cause serious complications including throat abscess, rheumatic fever and kidney disease, so be sure to take all your antibiotic medicine. See your doctor or return here if your symptoms worsen or are not improved in 3 days or for difficulty breathing or inability to swallow. documented in this encounter [facility] 08-22-2022 Note HNO ID: [id number] Author: Susana Tamez RN Service: ? Author Type: ? Type: Progress Notes Filed: 08/22/2022 9:08 AM Note Text: Patient identified by name and date of . Isatu Sage is here for her HPV Gardasil vaccination, injection # two of the series. Patient ?No Gardasil injection was given without incident. See immunizations for details of immunizations administered today. VIS sheet provided: Yes Patient advised to follow up in 4 months from the 2nd injection Provider Alpesh Casas MD was present in office at time of injection. Susana Tamez RN [facility] 06-19-2022 Note HNO ID: [id number] Author: Verna Cisneros Ma Service: ? Author Type: ? Type: Progress Notes Filed: 06/19/2022 10:03 AM Note Text: Patient identified by name and date of . Isatu Sage is here for her HPV 9 vaccination, injection # one of the series. Patient ?No Gardasil injection was given without incident. See immunizations for details of immunizations administered today. VIS sheet provided: Yes Patient advised to follow up in 2 months from the 1st injection Provider Dr Casas was present in office at time of injection. Verna Cisneros Ma [facility] 06-19-2022 Note HNO ID: [id number] Author: Alpesh Casas MD Service: ? Author Type: Physician Type: Progress Notes Filed: 06/19/2022 10:03 AM Note Text: Isatu Sage is a 42 year old female here for a repeat PAP. Patient's last menstrual period was 06/07/2022 (exact date). h/o JESSICA 1-3 on DANDC. Leep neg 12/2021. + HRHPV 16, on pahtology. CHIEF COMPLAINT: hpv testing (6 month follow up- LEEP- ) SUBJECTIVE: Contraception:none OBJECTIVE: EGBUS: Normal Vagina: good turgor/ruggae Cervix: closed, discharge present Yes,- physiological lesions present -none, flattened and flush w/ vagina Uterus: Normal size Adnexae: No palpable masses or enlargements, No tenderness ASSESSMENT: Encounter Diagnosis ICD-10-CM 1. High grade squamous intraepithelial lesion (HGSIL), grade 3 JESSICA, on biopsy of cervix D06.9 2. Dysplasia of cervix, high grade JESSICA 2 N87.1 HPV done. D/w her r/b/a to gardasil, desires to start series today Alpesh Casas M.D. [facility] 06-19-2022 History of Presen t illness Narrative Patient identified by name and date of . Isatu Sage is here for her HPV 9 vaccination, injection # one of the series. Patient ?No Gardasil injection was given without incident. See immunizations for details of immunizations administered today. VIS sheet provided: Yes Patient advised to follow up in 2 months from the 1st injection Provider Dr Casas was present in office at time of injection. Verna Cisneros Ma Isatu Sage is a 42 year old female here for a repeat PAP. Patient's last menstrual period was 06/07/2022 (exact date). h/o JESSICA 1-3 on D&C. Leep neg 12/2021. + HRHPV 16, on pahtology. CHIEF COMPLAINT: hpv testing (6 month follow up- [facility]EEP- ) SUBJECTIVE: Contraception:none OBJECTIVE: EGBUS: Normal Vagina: good turgor/ruggae Cervix: closed, discharge present Yes,- physiological lesions present -none, flattened and flush w/ vagina Uterus: Normal size Adnexae: No palpable masses or enlargements, No tenderness ASSESSMENT: Encounter Diagnosis ICD-10-CM 1. High grade squamous intraepithelial lesion (HGSIL), grade 3 JESSICA, on biopsy of cervix D06.9 2. Dysplasia of cervix, high grade JESSICA 2 N87.1 HPV done. D/w her r/b/a to gardasil, desires to start series today Alpesh Casas M.D. documented in this encounter [facility] 06-19-2022 Instructions Alpesh Casas MD - 06/19/2022 9:50 AM EST Gardasil Gardasil is a vaccine to protect against Human Papillomavirus (HPV) types 6, 11, 16, 18, 31,33,45, 52, 58. These viruses cause cancer and precancerous lesions on the cervix (opening between vagina and uterus), in the vagina and on the vulva (skin around the outside of the vagina) as well as genital warts. The vaccine cannot cause these diseases and cannot treat them if already present. Gardasil works best if given before contact with HPV. Most people are exposed to HPV soon after starting sexual activity. The vaccine is recommended between the ages of 9 and 45. Gardasil does not protect against all strains of HPV. Women who receive the vaccine still need to have regular pelvic exams and cervical cancer screening with the pap smear. You should ask your doctor if Gardasil is right for you if you have a weakened immune system, a bleeding disorder, plan to become soon or have a current illness causing fever. Gardasil is not recommended for women. You should be sure your doctor is aware of any allergies you have and all medications and herbal supplements you take. Gardasil is given to those ages 9-14 in 2 doses at 0 and 8 months. In ages 15-45, three injections are given at 0,2,6 months. Common side effects include pain, redness, itching and swelling at the injection site, nausea, fever, dizziness and fainting. Rare but potentially serious reactions have been reported. These include allergic reaction, swollen glands, joint and muscle pain, weakness and Guillain-Lublin syndrome. documented in this encounter [facility] 01-16-2022 Note HNO ID: [id number] Author: Alpesh Casas MD Service: ? Author Type: Physician Type: Progress Notes Filed: 01/16/2022 11:17 AM Note Text: Isatu Sage is a 41 year old female who presents for problem visit for f/u cone biopsy results. Had some bleeding for a few days, stopped, then had her menses. No purulent discharge. No bleeding now. Did not have pain after. 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, Having periods Age at Menarche: Age at First : Age at Menopause: Retail Banker History Comments: Sexual Activity: Not Currently; No partner data on record Contraception: No contraception data on record PAST MEDICAL HISTORY Diagnosis Date - High grade squamous intraepithelial lesion (HGSIL), grade 3 JESSICA, on biopsy of cervix - PMH - PAST MEDICAL HISTORY OF Blood transfusions x 2, following childbirth and tooth extraction - Unspecified hemorrhagic conditions Bleeding tendency - Von Willebrand's disease (HCC) PAST SURGICAL HISTORY Procedure Laterality Date - HYSTEROSCOPY BX ENDOMETRIUMAND/POLYPC W/WO DANDC 11/10/2021 hysteroscopy EMILIEVA for AUB, thickened endometrium - HYSTEROSCOPY, DIAGNOSTIC (SEPARATE 11/10/2021 Hysteroscopy DARCIE @ [facility]-Dr. Casas - PAST SURGICAL HISTORY OF dental extraction x 3 teeth FAMILY HISTORY Problem Relation Age of Onset - Hypertension Mother - Breast Cancer Maternal Grandmother Social History Tobacco Use - Smoking status: Never Smoker - Smokeless tobacco: Never Used Vaping Use - Vaping Use: Never used Substance Use Topics - Alcohol use: No - Drug use: No Current Outpatient Medications Medication Sig - norethindrone (AYGESTIN) 5 mg tablet Take 1 tablet by mouth once daily. (Patient not taking: Reported on 11/29/2021 ) No current facility-administered medications for this visit. Allergies As of Date: 01/16/2022 (No Known Allergies) Fully Assessed 01/16/2022 Allergies and current medication updated:Yes EXAM: BP 100/60 Wt 156 lb 3.2 oz (70.9kg) LMP 07/23/2021 GENERAL: pleasant, female in no apparent distress PELVIC: external genitalia normal, normal Bartholin's glands, urethra, Bradner's glands, no vulvar lesions, no cervical lesions, good vaginal support, physiologic discharge present, normal appearing perineal body and perianal region ASSESSMENT AND PLAN: JESSICA 2 on pathology, neg margins. f/u HPV in 6 months. Recommend gardasil vaccine, she will consider. Handout given Medical Decision Making Alpesh Casas MD [facility] 01-16-2022 Instructions Alpesh Casas MD - 01/16/2022 11:15 AM EDT Gardasil Gardasil is a vaccine to protect against Human Papillomavirus (HPV) types 6, 11, 16, 18, 31,33,45, 52, 58. These viruses cause cancer and precancerous lesions on the cervix (opening between vagina and uterus), in the vagina and on the vulva (skin around the outside of the vagina) as well as genital warts. The vaccine cannot cause these diseases and cannot treat them if already present. Gardasil works best if given before contact with HPV. Most people are exposed to HPV soon after starting sexual activity. The vaccine is recommended between the ages of 9 and 45. Gardasil does not protect against all strains of HPV. Women who receive the vaccine still need to have regular pelvic exams and cervical cancer screening with the pap smear. You should ask your doctor if Gardasil is right for you if you have a weakened immune system, a bleeding disorder, plan to become soon or have a current illness causing fever. Gardasil is not recommended for women. You should be sure your doctor is aware of any allergies you have and all medications and herbal supplements you take. Gardasil is given to those ages 9-14 in 2 doses at 0 and 8 months. In ages 15-45, three injections are given at 0,2,6 months. Common side effects include pain, redness, itching and swelling at the injection site, nausea, fever, dizziness and fainting. Rare but potentially serious reactions have been reported. These include allergic reaction, swollen glands, joint and muscle pain, weakness and Guillain-Lublin syndrome. documented in this encounter [facility] 01-16-2022 History of Presen t illness Narrative Isatu Sage is a 41 year old female who presents for problem visit for f/u cone biopsy results. Had some bleeding for a few days, stopped, then had her menses. No purulent discharge. No bleeding now. Did not have pain after. 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, Having periods Age at Menarche: Age at First : Age at Menopause: Retail Banker History Comments: Sexual Activity: Not Currently; No partner data on record Contraception: No contraception data on record PAST MEDICAL HISTORY Diagnosis Date High grade squamous intraepithelial lesion (HGSIL), grade 3 JESSICA, on biopsy of cervix PMH - PAST MEDICAL HISTORY OF Blood transfusions x 2, following childbirth and tooth extraction Unspecified hemorrhagic conditions Bleeding tendency Von Willebrand's disease (HCC) PAST SURGICAL HISTORY Procedure Laterality Date HYSTEROSCOPY BX ENDOMETRIUM&/POLYPC W/WO D&C 11/10/2021 hysteroscopy D&C for AUB, thickened endometrium HYSTEROSCOPY, DIAGNOSTIC (SEPARATE 11/10/2021 Hysteroscopy D&C @ [facility]-Dr. Casas PAST SURGICAL HISTORY OF dental extraction x 3 teeth FAMILY HISTORY Problem Relation Age of Onset Hypertension Mother Breast Cancer Maternal Grandmother Social History Tobacco Use Smoking status: Never Smoker Smokeless tobacco: Never Used Vaping Use Vaping Use: Never used Substance Use Topics Alcohol use: No Drug use: No Current Outpatient Medications Medication Sig norethindrone (AYGESTIN) 5 mg tablet Take 1 tablet by mouth once daily. (Patient not taking: Reported on 11/29/2021 ) No current facility-administered medications for this visit. Allergies As of Date: 01/16/2022 (No Known Allergies) Fully Assessed 01/16/2022 Allergies and current medication updated:Yes EXAM: BP 100/60 Wt 156 lb 3.2 oz (70.9kg) LMP 07/23/2021 GENERAL: pleasant, female in no apparent distress PELVIC: external genitalia normal, normal Bartholin's glands, urethra, Bradner's glands, no vulvar lesions, no cervical lesions, good vaginal support, physiologic discharge present, normal appearing perineal body and perianal region ASSESSMENT AND PLAN: JESSICA 2 on pathology, neg margins. f/u HPV in 6 months. Recommend gardasil vaccine, she will consider. Handout given Medical Decision Making Alpesh Casas MD documented in this encounter [facility] 01-04-2022 Miscellaneous Notes Patient notified. Lindsay Lal RN Left message for patient to call office. Lindsay Lal RN ----- Message from Alpesh Casas MD sent at 01/02/2022 1:09 PM EDT ----- Needs repeat HPV test in 6 months. LEEP results show JESSICA 2 w/ neg margins. Thanks. Alpesh Casas MD documented in this encounter [facility] 12-23-2021 Note HNO ID: [id number] Author: Alpesh Casas MD Service: ? Author Type: Physician Type: Progress Notes Filed: 12/23/2021 11:38 AM Note Text: Isatu Sage presents for LEEP. Indication: CIN3 onhysteroscopy [facility] specimen VITALS: LMP 07/23/2021 test: negative UNIVERSAL PROTOCOL / SAFETY CHECKLIST Procedure to be Performed: LEEp of the cervix Sign In: A Moment of CARE was completed. Personnel directly involved with the procedure wore the appropriate PPE (Personal Protective Equipment). Patient/Surrogate Stated/Verified: PATIENT VERIFIED(optional for EMERGENT procedures): Patient name, Date of , Relevant allergies and The intended procedure Time Out Communication: Intended patient and procedure match the source documents. Consent documented and matches the intended procedure. No implant(s) inserted. Sign Out: SIGN OUT (optional for EMERGENT procedures): All specimen containers correctly labeled. All instruments, equipment, possible retained foreign bodies accounted for. Post-procedure follow-up management communicated and Plan of Care Visit completed when applicable. Alpesh Casas M.D. PROCEDURE NOTE: Cervix anesthetized with 9 mL lignospan (1% lidocaine and epinephrine) 1:100,000 (1.8mL/vial) using a 27gauge Spinal needle. LEEP performed using Large mayers exact cone loop(s). ECC not done. Hemostasis was achieved with Monsel's solution, pressure and electrocautery. EBL-10 cc Specimen- ectocervix and ECC Procedure Summary: Patient tolerated procedure well. ASSESSMENT: CIN3. PLAN: Specimens labeled and sent to Pathology. Will notify patient of results in 1-2 weeks. Post-procedure instructions reviewed and written material given to the patient. Alpesh Casas MD [facility] 11-29-2021 Note HNO ID: [id number] Author: Alpesh Casas MD Service: ? Author Type: Physician Type: Progress Notes Filed: 11/30/2021 8:50 AM Note Text: Isatu Sage is a 41 year old female who presents for problem visit for f/u pathology from hysteroscopy [facility]. HPI: JESSICA 1-3 on Hysteroscoyp D*ANDC path from [facility]. No bleeding or pain since 2-3 days after hystereoscopy. No new c/o today. Denies new sexual partners in past 2 years. Denies h/o abnormal pap smears. 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, Having periods Age at Menarche: Age at First : Age at Menopause: Retail Banker History Comments: Sexual Activity: Not Currently; No partner data on record Contraception: No contraception data on record PAST MEDICAL HISTORY Diagnosis Date - [facility] - PAST MEDICAL HISTORY OF Blood transfusions x 2, following childbirth and tooth extraction - Unspecified hemorrhagic conditions Bleeding tendency - Von Willebrand's disease (HCC) PAST SURGICAL HISTORY Procedure Laterality Date - HYSTEROSCOPY BX ENDOMETRIUMAND/POLYPC W/WO DANDC 11/10/2021 hysteroscopy DANVA for AUB, thickened endometrium - HYSTEROSCOPY, DIAGNOSTIC (SEPARATE 11/10/2021 Hysteroscopy DARCIE @ [facility]-Dr. Casas - PAST SURGICAL HISTORY OF dental extraction x 3 teeth FAMILY HISTORY Problem Relation Age of Onset - Hypertension Mother - Breast Cancer Maternal Grandmother Social History Tobacco Use - Smoking status: Never Smoker - Smokeless tobacco: Never Used Vaping Use - Vaping Use: Never used Substance Use Topics - Alcohol use: No - Drug use: No Current Outpatient Medications Medication Sig - norethindrone (AYGESTIN) 5 mg tablet Take 1 tablet by mouth once daily. (Patient not taking: Reported on 11/29/2021 ) No current facility-administered medications for this visit. Allergies As of Date: 11/29/2021 (No Known Allergies) Fully Assessed 11/29/2021 Allergies and current medication updated:Yes EXAM: BP 100/68 Wt 149 lb 6.4 oz (67.8kg) LMP 07/23/2021 GENERAL: pleasant, female in no apparent distress Reviewed pathology from [facility] and also pap/HPV from last year ASSESSMENT AND PLAN: Encounter Diagnosis ICD-10-CM 1. High grade squamous intraepithelial lesion (HGSIL), grade 3 JESSICA, on biopsy of cervix D06.9 OFFICE LEEP r/b/a to LEEP of the cervix reviewed, questions answered nad she desires to proceed. Unusual to find this on hysteroscopy pathology w/ h/o normal pap and HRHPV last year. Also d/w her HPV vaccine series, recommended this, wshe will consider. AUB- reviewed pathology from hysteroscopy DANVA, no abnormal endometrial cells. D/w her that likely her heavy bleeding will continue but desires to monitor for now. If bothersome can discuss treatment options Medical Decision Making: Problems: Moderate: New problem with uncertain prognosis Data: Unique source(s) for external note(s) reviewed: 2 Risk: Moderate: Decision on minor surgery w/ risk factors Medical Decision Making Level: 4 - Moderate Alpesh Casas MD [facility] 11-29-2021 Instructions Alpesh Casas MD - 11/29/2021 11:29 AM EDT Gardasil Gardasil is a vaccine to protect against Human Papillomavirus (HPV) types 6, 11, 16, 18, 31,33,45, 52, 58. These viruses cause cancer and precancerous lesions on the cervix (opening between vagina and uterus), in the vagina and on the vulva (skin around the outside of the vagina) as well as genital warts. The vaccine cannot cause these diseases and cannot treat them if already present. Gardasil works best if given before contact with HPV. Most people are exposed to HPV soon after starting sexual activity. The vaccine is recommended between the ages of 9 and 45. Gardasil does not protect against all strains of HPV. Women who receive the vaccine still need to have regular pelvic exams and cervical cancer screening with the pap smear. You should ask your doctor if Gardasil is right for you if you have a weakened immune system, a bleeding disorder, plan to become soon or have a current illness causing fever. Gardasil is not recommended for women. You should be sure your doctor is aware of any allergies you have and all medications and herbal supplements you take. Gardasil is given to those ages 9-14 in 2 doses at 0 and 8 months. In ages 15-45, three injections are given at 0,2,6 months. Common side effects include pain, redness, itching and swelling at the injection site, nausea, fever, dizziness and fainting. Rare but potentially serious reactions have been reported. These include allergic reaction, swollen glands, joint and muscle pain, weakness and Guillain-Lublin syndrome. documented in this encounter [facility] 11-29-2021 History of Presen t illness Narrative Isatu Sage is a 41 year old female who presents for problem visit for f/u pathology from hysteroscopy D&C. HPI: JESSICA 1-3 on Hysteroscoyp D*&C path from [facility]. No bleeding or pain since 2-3 days after hystereoscopy. No new c/o today. Denies new sexual partners in past 2 years. Denies h/o abnormal pap smears. 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, Having periods Age at Menarche: Age at First : Age at Menopause: Retail Banker History Comments: Sexual Activity: Not Currently; No partner data on record Contraception: No contraception data on record PAST MEDICAL HISTORY Diagnosis Date H - PAST MEDICAL HISTORY OF Blood transfusions x 2, following childbirth and tooth extraction Unspecified hemorrhagic conditions Bleeding tendency Von Willebrand's disease (HCC) PAST SURGICAL HISTORY Procedure Laterality Date HYSTEROSCOPY BX ENDOMETRIUM&/POLYPC W/WO D&C 11/10/2021 hysteroscopy D&C for AUB, thickened endometrium HYSTEROSCOPY, DIAGNOSTIC (SEPARATE 11/10/2021 Hysteroscopy D&C @ [facility]-Dr. Casas PAST SURGICAL HISTORY OF dental extraction x 3 teeth FAMILY HISTORY Problem Relation Age of Onset Hypertension Mother Breast Cancer Maternal Grandmother Social History Tobacco Use Smoking status: Never Smoker Smokeless tobacco: Never Used Vaping Use Vaping Use: Never used Substance Use Topics Alcohol use: No Drug use: No Current Outpatient Medications Medication Sig norethindrone (AYGESTIN) 5 mg tablet Take 1 tablet by mouth once daily. (Patient not taking: Reported on 11/29/2021 ) No current facility-administered medications for this visit. Allergies As of Date: 11/29/2021 (No Known Allergies) Fully Assessed 11/29/2021 Allergies and current medication updated:Yes EXAM: BP 100/68 Wt 149 lb 6.4 oz (67.8kg) LMP 07/23/2021 GENERAL: pleasant, female in no apparent distress Reviewed pathology from [facility] and also pap/HPV from last year ASSESSMENT AND PLAN: Encounter Diagnosis ICD-10-CM 1. High grade squamous intraepithelial lesion (HGSIL), grade 3 JESSICA, on biopsy of cervix D06.9 OFFICE LEEP r/b/a to LEEP of the cervix reviewed, questions answered nad she desires to proceed. Unusual to find this on hysteroscopy pathology w/ h/o normal pap and HRHPV last year. Also d/w her HPV vaccine series, recommended this, wshe will consider. AUB- reviewed pathology from hysteroscopy D&C, no abnormal endometrial cells. D/w her that likely her heavy bleeding will continue but desires to monitor for now. If bothersome can discuss treatment options Medical Decision Making: Problems: Moderate: New problem with uncertain prognosis Data: Unique source(s) for external note(s) reviewed: 2 Risk: Moderate: Decision on minor surgery w/ risk factors Medical Decision Making Level: 4 - Moderate Alpesh Casas MD documented in this encounter [facility] 11-18-2021 Miscellaneous Notes Patient notified. Appointment scheduled. Susana Tamez RN Please let the patient know that her pathology returned and is normal of the uterus but showed some abnormal cells of the cervix. I would like to see her sometime this month to discuss a plan for this. Thanks. Alpesh Casas MD documented in this encounter [facility] 11-11-2021 Note HNO ID: [id number] Author: Alpesh Casas MD Service: ? Author Type: Physician Type: Progress Notes Filed: 11/11/2021 12:53 PM Note Text: Patient underwent hysteroscopy DANDC at [facility] on November 10, 2021 for AUB and thickened endometirum without complications. Pathology is pending. Alpesh Casas MD [facility] 11-11-2021 History of Presen t illness Narrative Patient underwent hysteroscopy D&C at [facility] on November 10, 2021 for AUB and thickened endometirum without complications. Pathology is pending. Alpesh Casas MD documented in this encounter [facility] 11-07-2021 Miscellaneous Notes Spoke with [facility] lab. Previous orders were cancelled once her surgery was cancelled. Refaxed orders to lab. Patient notified. Will have blood drawn at [facility] tomorrow before work. Instructed not to remove the arm band the lab will place on her tomorrow. Voiced understanding. Susana Tamez RN I left a message with PAT to verify that patient will get a call to come in and do this. Dr Casas wants to make sure that patient gets this done. Attempted to contact patient but no answer and unable to leave a message as voicemail box is full. Will attempted to contact patient again later. Leti Han RN My appologies for the reschedule. Next week should be fine. eeds to have the type and cross and platelets ready. SHould go in 1-2 days before surgery to have this done at [facility]. I previously wrote an order for this. Thanks. Patient is able to reschedule her procedure to 11/10/2021. Patient asking if she needs to have any labs repeated prior to surgery? Patient is checking with her employer to see if she will be able to reschedule her surgery to November 10, 2021 at [facility]. documented in this encounter [facility] 11-02-2021 Miscellaneous Notes Thank you, noted. Alpesh Casas MD Patient states she works until 10pm tonight and will not be able to come into the hospital today. She is aware surgery will be cancelled. I called Kelly in surgery to let her know. I have given a copy of this note to Yolanda so she can reschedule. FYI Attempted again. Still goes straight to voicemail. Lindsay Lal RN Left message for patient to call office [facility]. RR spoke to Dr. Nicole regarding patient's surgery tomorrow and h/o factor VIII. Patient needs to go to [facility] lab today for a type and cross match for 2 units of platelets. Plan to transfuse one unit in preop and one in operating room. If unable to get bloodwork done today surgery will need canceled for tomorrow. Lindsay Lal RN documented in this encounter [facility] 10-28-2021 Note HNO ID: [id number] Author: Alpesh Casas MD Service: ? Author Type: Physician Type: Progress Notes Filed: 11/02/2021 3:30 PM Note Text: Isatu Sage is a 41 year old female who presents for problem visit for aub, started w/ a prolonged menses. Aygestin now and no bleeding w/ this. Taking until DANDC. Had US that showed likely endometrial polyp. . 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, Having periods Age at Menarche: Age at First : Age at Menopause: Retail Banker History Comments: Sexual Activity: Not Currently; No partner data on record Contraception: No contraception data on record PAST MEDICAL HISTORY Diagnosis Date - PMH - PAST MEDICAL HISTORY OF Blood transfusions x 2, following childbirth and tooth extraction - Unspecified hemorrhagic conditions Bleeding tendency - Von Willebrand's disease (HCC) PAST SURGICAL HISTORY Procedure Laterality Date - PAST SURGICAL HISTORY OF dental extraction x 3 teeth FAMILY HISTORY Problem Relation Age of Onset - Hypertension Mother - Breast Cancer Maternal Grandmother Social History Tobacco Use - Smoking status: Never Smoker - Smokeless tobacco: Never Used Vaping Use - Vaping Use: Never used Substance Use Topics - Alcohol use: No - Drug use: No Current Outpatient Medications Medication Sig - norethindrone (AYGESTIN) 5 mg tablet Take 1 tablet by mouth once daily. No current facility-administered medications for this visit. Allergies As of Date: 10/28/2021 (No Known Allergies) Fully Assessed 10/28/2021 GENERAL: denies fevers or chills ENDOCRINOLOGY: has not been on steroids Cardiology : denies palpitations or chest pain Respiratory: denies SOB or cough Hematology: denies history of prolonged bleeding or easy bruising or VTE Allergy: Denies history of personal or family history of allergy to anesthesia sAllergies and current medication updated:Yes EXAM: BP 120/74 Pulse 88 Resp 18 Ht 5' 2.75 (1.59m) Wt 151 lb (68.5kg) LMP 07/23/2021 BMI 26.96 kg/(m2). GENERAL: pleasant, female in no apparent distress HEENT: Normocephalic, atraumatic, mucus membranes moist and no lesions NECK: Supple, full range of motion, no adenopathy and thyroid normal CHEST: Normal inspiratory effort ABDOMEN: soft, non-tender and no masses ASSESSMENT AND PLAN: AUB, thickened endometrium on pelvic US- likely endometrial polyp The risks/benefits/alternatives and personal involved for the planned hysteoscopy D+ANDC w/ polyp resection were reviewed with the patient. Her questions were answered to her satisfaction and she desires to proceed. Consent was signed. I reviewed with her postop instructions and expectations. She states her menses are not usually bothersome and she wants to track menses after surgery, if heavy or bothersome can consider treatment options Medical Decision Making Alpesh Casas MD [facility] 10-28-2021 History of Presen t illness Narrative Isatu Sage is a 41 year old female who presents for problem visit for aub, started w/ a prolonged menses. Aygestin now and no bleeding w/ this. Taking until D&C. Had US that showed likely endometrial polyp. . 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, Having periods Age at Menarche: Age at First : Age at Menopause: Retail Banker History Comments: Sexual Activity: Not Currently; No partner data on record Contraception: No contraception data on record PAST MEDICAL HISTORY Diagnosis Date PMH - PAST MEDICAL HISTORY OF Blood transfusions x 2, following childbirth and tooth extraction Unspecified hemorrhagic conditions Bleeding tendency Von Willebrand's disease (HCC) PAST SURGICAL HISTORY Procedure Laterality Date PAST SURGICAL HISTORY OF dental extraction x 3 teeth FAMILY HISTORY Problem Relation Age of Onset Hypertension Mother Breast Cancer Maternal Grandmother Social History Tobacco Use Smoking status: Never Smoker Smokeless tobacco: Never Used Vaping Use Vaping Use: Never used Substance Use Topics Alcohol use: No Drug use: No Current Outpatient Medications Medication Sig norethindrone (AYGESTIN) 5 mg tablet Take 1 tablet by mouth once daily. No current facility-administered medications for this visit. Allergies As of Date: 10/28/2021 (No Known Allergies) Fully Assessed 10/28/2021 GENERAL: denies fevers or chills ENDOCRINOLOGY: has not been on steroids Cardiology : denies palpitations or chest pain Respiratory: denies SOB or cough Hematology: denies history of prolonged bleeding or easy bruising or VTE Allergy: Denies history of personal or family history of allergy to anesthesia sAllergies and current medication updated:Yes EXAM: BP 120/74 Pulse 88 Resp 18 Ht 5' 2.75 (1.59m) Wt 151 lb (68.5kg) LMP 07/23/2021 BMI 26.96 kg/(m^2). GENERAL: pleasant, female in no apparent distress HEENT: Normocephalic, atraumatic, mucus membranes moist and no lesions NECK: Supple, full range of motion, no adenopathy and thyroid normal CHEST: Normal inspiratory effort ABDOMEN: soft, non-tender and no masses ASSESSMENT AND PLAN: AUB, thickened endometrium on pelvic US- likely endometrial polyp The risks/benefits/alternatives and personal involved for the planned hysteoscopy D^+&C w/ polyp resection were reviewed with the patient. Her questions were answered to her satisfaction and she desires to proceed. Consent was signed. I reviewed with her postop instructions and expectations. She states her menses are not usually bothersome and she wants to track menses after surgery, if heavy or bothersome can consider treatment options Medical Decision Making Alpesh Casas MD documented in this encounter [facility] 10-28-2021 History and physical note Pre-Op History and Physical HPI: The patient is a 41 year old female presenting for pre-operative visit. She is scheduled for Hysteroscopy D&C, polyp resection for AUB, thickened endometrium, suspected poly on 11/03/21. Procedure discussed along with risks, benefits and complications. Other alternatives discussed for management. Consent form signed? Yes. PAST MEDICAL HISTORY Diagnosis Date PMH - PAST MEDICAL HISTORY OF Blood transfusions x 2, following childbirth and tooth extraction Unspecified hemorrhagic conditions Bleeding tendency Von Willebrand's disease (HCC) PAST SURGICAL HISTORY Procedure Laterality Date PAST SURGICAL HISTORY OF dental extraction x 3 teeth Current Outpatient Medications Medication Sig Dispense Refill norethindrone (AYGESTIN) 5 mg tablet Take 1 tablet by mouth once daily. 60 tablet 0 No current facility-administered medications for this visit. ALLERGIES: Patient has no known allergies. PERSONAL HISTORY: Social History Tobacco Use Smoking status: Never Smoker Smokeless tobacco: Never Used Vaping Use Vaping Use: Never used Substance Use Topics Alcohol use: No Drug use: No FAMILY HISTORY: FAMILY HISTORY Problem Relation Age of Onset Hypertension Mother Breast Cancer Maternal Grandmother REVIEW OF SYMPTOMS: GENERAL: denies fevers or chills ENDOCRINOLOGY: has not been on steroids Cardiology : denies palpitations or chest pain Respiratory: denies SOB or cough Hematology: denies history of prolonged bleeding or easy bruising or VTE Allergy: Denies history of personal or family history of allergy to anesthesia PHYSICAL EXAMINATION: VITALS: Last menstrual period 07/23/2021. GENERAL: The patient is well nourished, well hydrated in no acute distress. , The patient is oriented to time, place, and person. NECK: Supple. No lynphadenopathy, normal thyroid, no thyromegaly. LUNGS: Clear to auscultation bilaterally. no wheezes, rhonchi or rales HEART: Regular rate and rhythm, Normal heart sounds and No murmurs or gallops IMPRESSION: h/o low von willebrand antigen and factor VIII but no definitive von Willebrand dx. AUB, endoemtrial thickening on US, suspect polyp PLAN: The risks/benefits/alternatives and personal involved for the planned hysteroscopy D&C with possible polyp resection were reviewed with the patient. Her questions were answered to her satisfaction and she desires to proceed. Consent was signed. I reviewed with her postop instructions and expectations. I have reviewed and updated past medical and surgical history, medications and allergies Alpesh Casas M.D. documented in this encounter [facility] 10-12-2021 Note HNO ID: [id number] Author: Christofer Naqvi Service: ? Author Type: [employer] Operator Type: Procedures Filed: 10/12/2021 10:06 AM Note Text: Radiology Service Progress Note PATIENT NAME: Isatu Sage DATE OF SERVICE: October 12, 2021 TIME: 10:06 AM PATIENT IDENTITY VERIFICATION COMPLETED USING TWO (2) IDENTIFIERS: Name and Date of confirmed by patient verbally. FALL SCREENING: Has the patient had 2 falls in the last year or 1 fall with injury or currently using an Ambulatory Assistive Device (Walker, Cane, Wheelchair, Crutches, etc.)? No PATIENT GENDER DATA: Female. status: : No status: NO. PATIENT RELEVANT IMPLANT DATA REVIEWED: Not Applicable RADIOLOGY DEPARTMENT: Mammography PERIPHERAL IV DATA: Not applicable SIGNED BY: Christofer Naqvi October 12, 2021 10:06 AM [facility] 09-09-2021 Miscellaneous Notes Summary: call back mamm unable to locate prior mamms Please proceed with additional imaging Called PT to schedule follow up. Left message for PT. 10/12/21- was the first available at [place].please have PT call [phone] documented in this encounter [facility] Diagnosis Abnormal uterine bleeding (AUB)- Primary Thickened endometrium Nonspecific (abnormal) findings on radiological and other examination of genitourinary organs [facility] Diagnosis High grade squamous intraepithelial lesion (HGSIL), grade 3 JESSICA, on biopsy of cervix- Primary Abnormal uterine bleeding (AUB) [facility] Diagnosis Postop check- Primary Follow-up examination, following unspecified surgery [facility] Diagnosis High grade squamous intraepithelial lesion (HGSIL), grade 3 JESSICA, on biopsy of cervix- Primary Dysplasia of cervix, high grade JESSICA 2 Need for prophylactic vaccination/inoculation against viral disease Need for prophylactic vaccination and inoculation against other viral diseases [facility] Diagnosis Sore throat- Primary Acute pharyngitis Strep throat Streptococcal sore throat [facility] Outpatient Procedure (Routine) - Pending Review Specialty Diagnoses / Procedures Referred By Brit joel Referred To Contact [facility] Diagnoses High grade squamous intraepithelial lesion (HGSIL), grade 3 JESSICA, on biopsy of cervix Procedures OFFICE LEEP COLPOSCOPY CERVIX VAG ELTRD CONIZATION CERVIX Alpesh Casas MD [address] [place] [address] [address] Referral ID Status Reason Start Date Expiration Date Visits Requested Visits Authorized [id number] Pending Review Auto-Generat ed Referral 11/29/2021 11/29/2022 1 1 [facility] Summary Purpose Family History No Family History Records Found Advance Directives No Advanced Directives Records Found Additional Source Comments Source Comments (unrecognize d section and content) In the event this informatio n is protected by the Federal Confidentiality of Alcohol and Drug Abuse Patient Records regulations: The Federal rules restrict any use of the information to criminally investigate or prosecute any alcohol or drug abuse patient.[facility] the event this information is protected by the Federal Confidentiality of Alcohol and Drug Abuse Patient Records regulations: The Federal rules restrict any use of the information to criminally investigate or prosecute any alcohol or drug abuse patient.[facility] the event this information is protected by the Federal Confidentiality of Alcohol and Drug Abuse Patient Records regulations: The Federal rules restrict any use of the information to criminally investigate or prosecute any alcohol or drug abuse patient.[facility] the event this information is protected by the Federal Confidentiality of Alcohol and Drug Abuse Patient Records regulations: The Federal rules restrict any use of the information to criminally investigate or prosecute any alcohol or drug abuse patient.[facility] the event this information is protected by the Federal Confidentiality of Alcohol and Drug Abuse Patient Records regulations: The Federal rules restrict any use of the information to criminally investigate or prosecute any alcohol or drug abuse patient.[facility] the event this information is protected by the Federal Confidentiality of Alcohol and Drug Abuse Patient Records regulations: The Federal rules restrict any use of the information to criminally investigate or prosecute any alcohol or drug abuse patient.[facility] the event this information is protected by the Federal Confidentiality of Alcohol and Drug Abuse Patient Records regulations: The Federal rules restrict any use of the information to criminally investigate or prosecute any alcohol or drug abuse patient.[facility] the event this information is protected by the Federal Confidentiality of Alcohol and Drug Abuse Patient Records regulations: The Federal rules restrict any use of the information to criminally investigate or prosecute any alcohol or drug abuse patient.[facility] the event this information is protected by the Federal Confidentiality of Alcohol and Drug Abuse Patient Records regulations: The Federal rules restrict any use of the information to criminally investigate or prosecute any alcohol or drug abuse patient.[facility] the event this information is protected by the Federal Confidentiality of Alcohol and Drug Abuse Patient Records regulations: The Federal rules restrict any use of the information to criminally investigate or prosecute any alcohol or drug abuse patient.[facility] the event this information is protected by the Federal Confidentiality of Alcohol and Drug Abuse Patient Records regulations: The Federal rules restrict any use of the information to criminally investigate or prosecute any alcohol or drug abuse patient.[facility] the event this information is protected by the Federal Confidentiality of Alcohol and Drug Abuse Patient Records regulations: The Federal rules restrict any use of the information to criminally investigate or prosecute any alcohol or drug abuse patient.[facility] the event this information is protected by the Federal Confidentiality of Alcohol and Drug Abuse Patient Records regulations: The Federal rules restrict any use of the information to criminally investigate or prosecute any alcohol or drug abuse patient.[facility] the event this information is protected by the Federal Confidentiality of Alcohol and Drug Abuse Patient Records regulations: The Federal rules restrict any use of the information to criminally investigate or prosecute any alcohol or drug abuse patient.[facility] Reason for Visit (unrecogniz ed section and content) Reason Comments Pre-Op Update Reason Comments Schedule Surgery Reason Comments Results Reason Comments Follow Up discuss pathology Reason Comments Follow Up from [facility] on 12/23/21 Reason Onset Date Comments hpv testing 6 month follow u p- LEEP- Gardasil Injection 06/19/2022 Reason Comments Sore Throat x last night INFORMATION SOURCE (unrecogn ized section and content) FOR RECORDS PERTAINING TO PATIENTS WHO ARE OR HAVE BEEN ENROLLED IN A CHEMICAL DEPENDENCY/SUBSTANCEABUSE PROGRAM, SOME INFORMATION MAY BE OMITTED. This clinical summary was aggregated from multiple sources. Caution should be exercised in using it in the provision of clinical care. This summary normalizes information from multiple sources, and as a consequence, information in this document may materially change the coding, format and clinical context of patient data. In addition, data may be omitted in some cases. CLINICAL DECISIONS SHOULD BE BASED ON THE PRIMARY CLINICAL RECORDS. [facility] [employer] [facility]. provides no warranty or guarantee of the accuracy or completeness of information in this document.
[2023-07-24 20:35] LABS: Internal QC Validated? YES +Cl - CLEAR BKGD; Pregnancy, Serum, hCG Quali. NEGATIVE Negative
[2023-07-24 20:37] LABS: Absolute Lymphocyte Count 2.08 X10^3/uL (0.83-4.51); Absolute Neutrophil Count 7.6 X10^3/uL (2.0-7.7); Basophil# 0.03 X10^3/uL; Basophil% 0.3 % (0-1); Eosinophil# 0.19 X10^3/uL; Eosinophils% 1.8 % (0-5); Hematocrit 40.3 % (37-47); Hemoglobin 13.2 g/dL (12.0-15.0); Lymphocyte # 2.08 X10^3/ul (0.83-4.51); Lymphocyte % 19.6 % (19-41); Mean Corp Hgb Conc 32.8 g/dL (32-36); Mean Corpuscular Hgb 29.7 pg (27.0-32.0); Mean Corpuscular Volume 90.6 fL (81-99); Mean Platelet Vol. 10.7 fl (6.2-12.0); Monocyte# 0.72 X10^3/uL; Monocyte% 6.8 % (0-10); NRBC Flagged by Analyzer 0 % (0-5); Neutrophil # 7.55 X10^3/uL (2.7-7.7); Neutrophil % 71.2 % (47-70); Platelet Count 268 K/mm3 (150-450); RBC Distribution Width CV 13.2 % (11.6-14.6); RBC Distribution Width SD 43.6 fl (35.1-43.9); Red Blood Count 4.45 M/mm3 (4.2-5.4); White Blood Count 10.6 K/mm3 (4.4-11.0)
[2023-07-24 20:45] LABS: AST(SGOT) 21 U/L (15-37); Alanine Aminotransfer ALT/SGPT 15 U/L (13-56); Albumin, Serum 3.5 g/dL (3.2-5.0); Alkaline Phosphatase 60 U/L (45-117); Anion Gap 4 (5-15); BUN 7 mg/dL (7-18); BUN/Creat Ratio 10.8 RATIO (10-20); Calcium,Total 8.9 mg/dL (8.5-10.1); Chloride 107 mmol/L (98-107); Creatinine, Serum 0.65 mg/dL (0.55-1.02); EST Glomerular Filtration Rate 105 mL/min (>60); Est Glom Filt Rate - Afr Amer 127 mL/min (>60); Estimated Creatinine Clearance 102.46 ml/min; Globulin 3.5 g/dL (2.2-4.2); Glucose 99 mg/dL (74-106); Potassium 3.4 mmol/L (3.5-5.1); Sodium Level 138 mmol/L (136-145); Troponin-I HS 3 pg/mL (3.0-54.0)
[2023-07-24 20:53] LABS: D-Dimer Quantitative (DVT/PE) < 0.27 FEU/ug/m (0.27-0.49)
== END 2023-07-24 22:25 | disposition home or self-care (01) ==
PROVIDERS: Emergency Provider Emergency Medicine; Visit Provider Emergency Medicine
DX: R51.9 Headache, unspecified (principal); R07.9 Chest pain, unspecified; M54.9 Dorsalgia, unspecified
CPT/HCPCS: 70450; 71045; 80053; 84484; 84703; 85025; 85379; 93005; 96361; 96374; 96375; 99285; J7030; A4216